=== PATIENT | female | born 1985 | race Caucasian/White ===

== ENCOUNTER 2016-03-23 22:34 | Observation (INO) | payer OTHER ==
[~2016-03-23] VITALS: Ht 167.6 cm; Wt 111.0 kg
[2016-03-23 22:37] VITALS: BP 151/95; PULSE 107; RESP 16; O2SAT 94
[2016-03-23] MEDS ORDERED: PROP10TA8 PO (23:39)
[2016-03-23] MEDS ORDERED: DEXT10CA PO (23:39)
[2016-03-23] MEDS ORDERED: BUSP15TA3 PO (23:39)
[2016-03-23] MEDS ORDERED: BUPR150T9 PO (23:39)
[2016-03-23] MEDS ORDERED: NALT50TA PO (23:39)
[2016-03-23] MEDS ORDERED: ALPR0.254 PO (23:39)
--- NOTE | 2016-03-23 23:40 | ED.REPORT ---
HPI-Abd Pain F Under 40 Date of Service Mar 23, 2016 ED Provider: Sedrick Perez MD Pt is a 30 y/o female w/ a hx of PCOS presenting to the ED c/o gradually worsening RLQ abdominal pain onset this morning. She c/o associated nausea. She has experienced somewhat similar pain in the past caused by ovarian cysts but this pain is not of the same quality or severity. Her pain is exacerbated with laughing movement and deep breathing. She denies fever, dysuria, loss of appetite, diarrhea, vomiting, bloody stool. Last menstrual period 03/13/16. Abdominal surgeries: cholecystectomy Nursing Notes Stated Complaint: ABDOMINAL PAIN Chief Complaint: Female Abdominal Pain Nursing Notes Reviewed: Yes Allergies: Coded Allergies: No Known Allergies (Unverified Allergy, Unknown, 02/19/14) Scheduled Bupropion HCl (Zyban) 150 Mg Tablet.er 150 MG PO BID Buspirone (Buspirone) 15 Mg Tablet 15 MG PO BID Dextroamphetamine Sulfate (Dexedrine) 10 Mg Capsule.er 10 MG PO BID Naltrexone (Naltrexone) 50 Mg Tablet 25 MG PO BID Propranolol HCl (Propranolol HCl) 10 Mg Tablet 10 MG PO ONCE Prn daily for anxiety Scheduled PRN Alprazolam (Alprazolam) 0.25 Mg Tablet 0.25 MG PO ONCE PRN PRN For Anxiety General Time Seen by MD: 23:35 Chief Complaint Abdominal pain Hx Obtained From: Patient Arrived By: Walk-in Sudden in Onset?: No Onset Occurred: 5 - 8 hours ago Symptom Duration: Since onset Progression since Onset: Gradually worsening Location: : RLQ Quality: Painful Severity: Current: Moderate Severity: Maximum: Moderate Similar Sx Previous: No Past Medical History Past Medical History Anxiety PCOS Past Surgical History Denies Family History Non-contributory Smoking History Current Every Day Smoker Social History Alcohol Use: Denies alcohol use Drug Use: Denies drug use Ambulatory Status Independent Review of Systems Constitutional: Denies: Chills, Fever Respiratory: Denies: Non-productive cough, Shortness of breath Cardiovascular: Denies: Chest pain GI: Reports: Abdominal pain, Nausea, Denies: Diarrhea, Vomiting Female: Denies: Dysuria, Urinary frequency Complete sys rev & neg: except as marked. Physical Exam Initial Vital Signs Vital Signs (First) Date Time Temp Pulse Resp B/P Pulse Ox O2 Delivery O2 Flow Rate FiO2 03/23/16 22:37 36.8 107 16 151/95 94 Initial VS: Reviewed, Vital signs abnormal Head / Eyes: Atraumatic, Normocephalic, PERRL ENT: Mucous membranes moist, Conjunctiva normal, No scleral icterus Neck: Supple, Full range of motion Skin: Warm, Dry, No cyanosis Neurologic: Alert, Oriented, Nonfocal Psychiatric: Mood/affect normal, Behavior normal, Normal thought content General/Constitutional: Awake, Alert, No acute distress, Well appearing, Cooperative, Not toxic appearing Behavior: Positive: Anxious Abdomen: Atraumatic, Soft, No distention, No palpable mass Mild right CVAT Moderate RLQ abdominal tenderness Rebound tenderness localized to the RLQ Palpation in other quadrants refers pain to the RLQ Back: Full range of motion, Painless range of motion Interpretation & Diagnostics Interpretation & Diagnostics: US abdomen: Conclusion: Tubular structure is of uncertain etiology, cannot rule out acute appendicitis. Patient is tender while scanning. Transmitted to the ED by Niki Chau MD - 0133 Lab Results Interpretation Result Diagram: 03/23/16 2355 03/23/16 2355 Test 03/23/16 23:55 White Blood Count 10.2th/mm3 (3.8-10.1) Red Blood Count 4.80mil/mm3 (3.90-5.20) Hemoglobin 15.0g/dL (12.0-15.6) Hematocrit 43.6% (35.0-46.0) Mean Corpuscular Volume 90.8fL (81-100) Mean Corpuscular Hemoglobin 31.3pg (27.0-35.0) Mean Corpuscular Hemoglobin Concent 34.4% (32.0-37.0) Red Cell Distribution Width 12.1% (12.3-15.4) Platelet Count 323bil/L (150-400) Neutrophils (%) (Auto) 57.8% (40-74) Lymphocytes (%) (Auto) 25.5% (14-46) Monocytes (%) (Auto) 8.2% (4-12) Eosinophils (%) (Auto) 7.7% (0-5) Basophils (%) (Auto) 0.6% (0-3) Urine Color Yellow (YELLOW) Urine Appearance Clear (CLEAR,HAZY) Urine pH 6.0 (5.0-8.0) Urine Specific [place] 1.025 (1.003-1.035) Urine Protein Negativemg/dL (NEG,TRACE) Urine Glucose (UA) Negativemg/dL (NEGATIVE) Urine Ketones Negativemg/dL (NEGATIVE) Urine Occult Blood Negative (NEGATIVE) Urine Nitrite Negative (NEGATIVE) Urine Bilirubin Negative (NEGATIVE) Urine Urobilinogen Normalmg/dL (NORMAL) Urine Leukocyte Esterase Negative (NEGATIVE) Urine RBC 0-2/hpf (0-2) Urine WBC 0-5/hpf (0-5) Urine Epithelial Cells Moderate/hpf (NONE-MOD) Urine Crystals None seen (NONE SEEN) Urine Bacteria Few/hpf (NONE-FEW) Urine Hyaline Casts None/lpf (NONE) Urine Granular Casts None seen (NONE SEEN) Urine Waxy Casts None seen (NONE SEEN) Urine Red Blood Cell Casts None seen (NONE SEEN) Urine White Blood Cell Casts None seen (NONE SEEN) Urine Mucus Present (None Seen) Urine Trichomonas None seen (NONE SEEN) Urine Yeast None (NONE SEEN) Urine Culture Reflexed Not indicated Sodium Level 138mEq/L (134-144) Potassium Level 4.3mEq/L (3.5-5.2) Chloride Level 104mEq/L (97-108) Carbon Dioxide Level 25mmol/L (18-29) Blood Urea Nitrogen 12mg/dL (6-20) Creatinine 0.65mg/dL (0.57-1.00) Estimat Glomerular Filtration Rate 154mL/min (>59) Glucose Level 85mg/dL (60-99) Calcium Level 9.3mg/dL (8.5-10.1) Magnesium Level 2.0mg/dL (1.6-2.6) Total Bilirubin 0.2mg/dL (0.0-1.2) Aspartate Amino Transf (AST/SGOT) 39U/L (0-50) Alanine Aminotransferase (ALT/SGPT) 74U/L (0-32) Alkaline Phosphatase 78U/L (25-150) Total Protein 7.3g/dL (6.4-8.4) Albumin 4.4g/dL (3.4-5.0) Lipase 15U/L (13-60) Lab Results Interpretation: Mildly elevated white blood count CT Abd / Pelvis Interpretation Conclusion: Gasless appendix is mildly enlarged at 7 mm in diameter, concering for an early acute appendicitis. Transmitted to the ED by Niki Chau MD at 0220. Study type: Abdominal CT IV contrast Interpretation / Wet Read by: Interpret - Radiologist, Discussed w radiologist Re-Eval/Medical Decision Med Decision/Clinical Course 30-year-old female with right lower quadrant abdominal pain and a little bit of white blood count elevation. She is not febrile. She is tender in the right lower quadrant and has some peritoneal signs. Ultrasound suggested acute appendicitis but was equivocal. CT scan showed early appendicitis. The patient is on naltrexone and bupropion for weight loss so pain management was an issue. She was given IV acetaminophen and IV Toradol and IV fentanyl with some relief of her discomfort. Case was discussed with Dr. Dominguez and the patient will be admitted for further evaluation and treatment. Source of Hx: Old records Re-Evaluation/Progress #1: Time of Eval: 01:30 Patient Status: Condition improved, Pain improved Re-Evaluation/Progress Note: Informed pt of need for CT b/c of inconclusive, yet worrisome US. She agrees with plan. Re-Evaluation/Progress #2: Time of Eval: 02:54 Patient Status: Condition improved, Pain improved Re-Evaluation/Progress Note: Pt rechecked. Informed pt of need for admission for surgical intervention of likely acute appendicitis. Pt understands and agrees with need for admission. All questions addressed. Consultation : Referral / Consult Name: Yasemin Dominguez MD Consulted With: Surgeon Call Returned at: 02:50 Surgery Aide: Will see patient, Agrees with eval, Agrees with plan, Accepts admit Note: Case discussed. Recommends 2g of Cefotetan. Counseled Regarding: Diagnosis, Lab results, Need for admission Discharge & Departure Primary Impression: Acute appendicitis Acute appendicitis type: with localized peritonitis Qualified Code: K35.3 - Acute appendicitis with localized peritonitis Disposition: ADMITTED TO HOSPITAL Discharge Condition All VS Reviewed: Yes Condition: Stable Referrals: Juan A Devlin MD (PCP) Gabriela Attestation Portions of this note were transcribed by Alejandro Dawson. I, Dr. Perez personally performed the history, physical exam and medical decision-making; I reviewed and confirmed the accuracy of the information in the transcribed note. Signed by Gabriela Cherry, 03/23/16 - copies to: Juan A Devlin MD, Howard L MD Mar 23, 2016 23:40 ALEJANDRO DAWSON Mar 23, 2016 23:50
[2016-03-23] MEDS ORDERED: 0.9% Sodium Chloride 1,000 ML IV ONE (23:48)
[2016-03-24 00:09] LABS: BASOPHILS % (AUTO) 0.6 % (0-3); EOSINOPHILS % (AUTO) 7.7 % (0-5); MONOCYTES % (AUTO) 8.2 % (4-12); Mean Corpuscular Hemoglobin 31.3 pg (27.0-35.0); Mean Corpuscular Volume 90.8 fL (81-100); NEUTROPHILS % (AUTO) 57.8 % (40-74); Platelet Count 323 bil/L (150-400)
[2016-03-24] MEDS: Ondansetron 2 mg/mL 2 mL Inj IVPUSH PRN ×4 (00:12→08:55)
[2016-03-24] MEDS ORDERED: fentaNYL-PF 50 mCg/mL 2 mL Inj IVPUSH ONE ×2 (01:05→03:15)
[2016-03-24 01:14] LABS: APPEARANCE,URINE CLEAR (CLEAR,HAZY); COLOR,URINE YELLOW (YELLOW)
[2016-03-24 01:15] LABS: OCCULT BLOOD,URINE NEGATIVE (NEGATIVE); UROBILINOGEN,URINE NORMAL (NORMAL)
[2016-03-24] MEDS ORDERED: Cefotetan Inj 2,000 MG in IV Premix 1 EACH IV SCH ×2 (03:10→04:23)
[2016-03-24 03:24] VITALS: BP 134/72; PULSE 76; RESP 18; O2SAT 99
--- NOTE | 2016-03-24 03:48 | NUR ---
Admission Pt here for right upperr quadrant abd pain. Pt aware that she is to have surgery in the AM for acute appendicitis NPO Up ad jermaine to bathroom. Her pain is an 8/10 to right upper quadrant. Abd is soft to touch. No nausea. Oriented to room/call light. Cont pulse ox in place due to high riskk sleep apnea. SCD''s applied.
[2016-03-24 03:49] VITALS: BP 132/86; PULSE 69; RESP 21; O2SAT 95
[2016-03-24] MEDS ORDERED: fentaNYL-PF 50 mCg/mL 2 mL Inj IVPUSH PRN (04:25)
[2016-03-24] MEDS ORDERED: Dextrose 5% 0.45% NaCl 1,000 ML IV SCH (04:29)
[2016-03-24] MEDS ORDERED: Ondansetron 2 mg/mL 2 mL Inj IVPUSH PRN (04:30)
--- NOTE | 2016-03-24 05:32 | NUR ---
GI Pt states that she needs to pass gas or have a BM Pt also states that she took laxatives yesterday morning thinking that her pain was related to constipation. Some nausea and dry heaves accompany the above symptoms. Currently in bathroom. Fall precautions reviewed. Pt verbalizes understanding.
[2016-03-24] MEDS ORDERED: diphenhydrAMINE 25 mg Capsule PO PRN (08:10)
[2016-03-24] MEDS: Polyethylene Glycol (PEG) 17 Gm Powder PO ONE ×2 (08:42→09:03)
--- NOTE | 2016-03-24 09:04 | NUR ---
Nausea Patient reported nausea. 4 mg of ondansetron given. Reports 8/10 abdominal pain. No pain medications available. Patient repositions self for comfort. Call light and tray table within reach. Will continue to monitor patient hourly.
--- NOTE | 2016-03-24 09:43 | DRSVH ---
PROCEDURE: CT ABDOMEN AND PELVIS WITH CONTRAST ([id number]) INDICATIONS: RLQ tenderness TECHNIQUE: After the administration of intravenous contrast, 5 mm thick sections acquired from the diaphragm to the symphysis. 5 mm coronal and sagittal reformats were acquired. For radiation dose reduction, the following was used: automated exposure control, adjustment of mA and/or kV according to patient siz e. COMPARISON: [facility] Right lower quadrant.[facility], US, US APPENDIX, 03/23/2016, 23:59. FINDINGS: Image quality: Excellent. ABDOMEN: Lung bases: Lung bases are clear. Heart size is normal. Solid organs: Liver is enlarged with steatosis. The spleen is normal in size and enhancement. Gallb ladder has been intermittent. Biliary system is non dilated. Pancreas enhances normally. No adrena l nodules. Kidneys demonstrate normal size and enhancement, without hydronephrosis. Peritoneum and bowel: Bowel loops demonstrate normal wall thickness and caliber. No free fluid or a ir. The appendix is borderline enlarged measuring 7 mm. No definitive inflammatory change. No append icolith. Nodes and vessels: No retroperitoneal or mesenteric adenopathy by size criteria. Scattered sub-centi meters lymph nodes are present within the Aorta and inferior vena cava are normal in size. Miscellaneous: No ventral hernias. PELVIS: Genitourinary: Bladder wall thickness is normal. Miscellaneous: No inguinal hernias or adenopathy. Bones: No suspicious bony lesions. No vertebral body compression fractures. IMPRESSION: 1. Borderline enlarged appendix without definitive surrounding inflammatory change. Scattered subcent imeter lymph nodes are present. No priors are available for comparison. Findings could be related to early appendicitis. Recommend clinical correlation and interval imaging follow up as indicated. Dictated by: Natalya Ribera M.D. on 03/24/2016 at 8:31 Approved by: Natalya Ribera M.D. on 03/24/2016 at 8:31
[2016-03-24 10:30] LABS: BASOPHILS % (AUTO) 0.3 % (0-3); EOSINOPHILS % (AUTO) 3.6 % (0-5); MONOCYTES % (AUTO) 5.2 % (4-12); Mean Corpuscular Hemoglobin 30.7 pg (27.0-35.0); Mean Corpuscular Volume 90.8 fL (81-100); NEUTROPHILS % (AUTO) 73.7 % (40-74); Platelet Count 273 bil/L (150-400)
--- NOTE | 2016-03-24 12:10 | DRSVH ---
PROCEDURE: US APPENDIX INDICATIONS: RLQ abd pain TECHNIQUE: Real-time focused scanning was performed of the abdomen with attention to the appendix, with image do cumentation. COMPARISON: [facility], CT, CT ABD PELVIS W CON, 03/24/2016, 1:37. FINDINGS: There is a partially visualized tubular structure seen posterior to the iliac artery. The origin or a potential blind end cannot be visualized. It is slightly compressible. There is no visualized hypere he or appendicolith. Diameter measures between 10.2 and 12.6 mm. There is no associated free fluid o r adenopathy within the right lower quadrant. IMPRESSION: Partially visualized apparent tubular structure within the right lower quadrant. This cou ld represent an area of enlarged appendix versus bowel loop. Appendicitis cannot be excluded and apoorva mmend further evaluation with CT as clinically indicated. Dictated by: Natalya Ribera M.D. on 03/24/2016 at 9:14 Approved by: Natalya Ribera M.D. on 03/24/2016 at 9:14
--- NOTE | 2016-03-24 14:22 | HP ---
[address] [address] HISTORY AND PHYSICAL PATIENT: SAM THOMAS : 1985 MR#: [id number] ADMIT: 03/24/2016 JOB ID: [id number] CHIEF COMPLAINT/IDENTIFICATION: A 30-year-old woman who presented with abdominal pain and was admitted to the General Surgery Service with acute appendicitis. HISTORY OF PRESENT ILLNESS: The patient reports to me that she had onset of right-sided abdominal pain yesterday, thought it was constipation as she had not had a bowel movement in a while. She took some laxatives but then came to the emergency department where she was felt to have appendicitis in the middle the night on clinical grounds based on her examination and history, white blood cell count of 10.2, and ultrasound and CT scan. She was admitted overnight to the General Surgery service and started on antibiotics. This morning she tells me that she felt better after having had a bowel movement. She does have a previous history of PCOS diagnosed from menstrual issues, weight gain, but without imaging suggestive of PCOS. She is not on any hormonal treatments. Her periods are irregular. This pain is not similar to the pain that she had when she had her gallbladder out. She denies vaginal discharge or dysuria. PAST MEDICAL HISTORY: 1. Laparoscopic cholecystectomy. 2. PCOS. MEDICATIONS: Per med reconciliation list. She takes bupropion, buspirone, Dexedrine, naltrexone and p.r.n. alprazolam as well as daily propranolol. ALLERGIES: None. SOCIAL HISTORY: She lives with her and daughter. She smokes occasional cigarette but not every day, denies daily alcohol use. FAMILY HISTORY: Noncontributory. REVIEW OF SYSTEMS: Noncontributory. PHYSICAL EXAMINATION: Vital signs recorded in the chart, within normal limits. Her BMI is 39.5. Her sclerae are clear. Neck is supple. Lungs are clear. Heart sounds are regular. She has minimal right lower quadrant tenderness to palpation, no other tenderness. Rectal and pelvic examination is not performed. LABORATORIES: Her white count last night was 10.2 and her hematocrit is 43. Ultrasound and CT were obtained last night. I have reviewed the images and the [facility] readings. I see minimal evidence for appendicitis on either scan. IMPRESSION/PLAN: A 30-year-old woman with abdominal pain who was admitted for possible appendicitis. I think it is unlikely that she has appendicitis given her history, but the fact that she has received some IV antibiotics does confuse the picture a bit. I have ordered a repeat white blood cell count, but at this point, my recommendation would be to stop her antibiotics, let her go on clear liquids and then follow her clinically with expectation that if this is indeed appendicitis that either her pain, her white blood cell count or some other symptoms should increase over the next 24 hours. Given the fact that she has received antibiotics, I would prefer to observe her in the hospital. I have outlined this plan to the patient this morning and she agrees to proceed. We will stop her antibiotics, I will check her white count today and I will check her white count again tomorrow. I am encouraged by the fact that she subjectively feels better having had a bowel movement.
[2016-03-24 15:41] VITALS: BP 120/74; PULSE 81; RESP 16; O2SAT 96
--- NOTE | 2016-03-24 16:16 | PCM.DISURG ---
Surgical Discharge Instruction Date of Service Mar 24, 2016 Dates of Hospitalization Date of Hospital Admission Mar 24, 2016 at 03:02 Providers Admitting Physician: Yasemin Dominguez MD Primary Care Physician: Haris San MD Attending Physician: Yasemin Dominguez MD Discharge Diagnosis Discharge Diagnosis abdominal pain Diet Discharge Diet: No restrictions Activity Discharge Activity-General: No restrictions Dressing and Incisional Care Hygiene: May shower Additional Instructions Discharge Instructions The ER doctor thought you had appendicitis and started antibiotics but Dr. Palmer didn't think there was enough evidence to justify either surgery or continuing antibiotics. If you have increased symptoms over the next day or even weeks, follow up either through the ER or your transformation manager Follow Up Plan Follow Up Plan as needed Call your provider for: Increasing abdominal pain Haresh Palmer MD Mar 24, 2016 16:16
--- NOTE | 2016-03-24 17:03 | NUR ---
Discharge Pt requesting to go home tonight instead of waiting for labs in morning as she has not been nauseous throughout day and pain has been steadily decreasing. She now rates pain at 2/10. Dr. Plamer consulted and decision made for pt to CT. Pt was given education on constipation and appendicitis to help differentiate pain symptoms if they return. Pt will follow up with her PCP in a couple of weeks.
--- NOTE | 2016-03-24 17:21 | DIS ---
[address] [address] DISCHARGE SUMMARY PATIENT: SAM HTOMAS : 1985 MR#: [id number] ADMIT: 03/24/2016 JOB ID: [id number] DIS: 03/24/2016 CORRECTED REPORT: DISCHARGE DIAGNOSIS: Abdominal pain. HOSPITAL COURSE: This is a 30-year-old female who presented with 24 hours of abdominal pain, a white count of 10.2, equivocal findings on ultrasound and CT scan. She was admitted to the General Surgery service and started on IV antibiotics with a presumptive diagnosis of appendicitis. I saw her in consultation early on the morning of the and after review of the history and physical examination, labs, and all imaging, I felt that she had minimal evidence for appendicitis that neither warranted a trip to the operating room nor even a course of antibiotics. As she had received antibiotics, I had concerns about partially treated appendicitis and therefore laid out a plan with her to observe her for 24 hours on clear liquids, recheck her white count the next day, and make a clinical decision based on that course. However, during the course of the afternoon, she began feeling physically better, with markedly less pain, and became tearful as she felt that it was more important for her to be at home for a variety of social reasons. On reexamination, her tenderness was minimal. I told her that, even though it was against my best advice, that it seemed reasonable that she would be able to be discharged home. Her instructions were if she felt worse tomorrow or anytime within the next week, that she needed to seek care, either at the emergency department for with her primary care provider. I did explain to her that, although I did not think she had appendicitis and would not operate on her at this point, it is possible that she had a very early appendicitis that has now been partially treated with some masking of the symptoms and that it is paramount that she return if she worsens significantly tonight or anytime over the next few weeks. She will be discharged on her prehospitalization medications and follow up either through the emergency department or with her primary care provider. Completed dictation.
== END 2016-03-24 16:55 | disposition home or self-care (01) ==
LOC: SED 22:34 → OSC 03-24 03:02
PROVIDERS: ADMIT Student in an Organized Health Care Education/Training Program; ATTEND Surgery
DX: R10.31 Right lower quadrant pain (principal); D72.829 Elevated white blood cell count, unspecified; F41.9 Anxiety disorder, unspecified; F17.210 Nicotine dependence, cigarettes, uncomplicated
CPT/HCPCS: 36415; 74177; 76705; 80053; 81000; 81025; 83690; 83735; 85025; 96361; 96374; 96375; 96376; 99285; G0378; J2405; J7030; J7042; Q9967